=== PATIENT | male | born 1970 | race Caucasian/White ===

== ENCOUNTER 2017-09-12 15:28 | Emergency (ER) | payer OTHER ==
[~2017-09-12] VITALS: Ht 172.7 cm; Wt 81.5 kg
[~2017-09-12 15:28] MED LIST: Z.0.NO CURRENT MEDS
[2017-09-12 15:30] VITALS: BP 134/74; PULSE 92; RESP 12; TEMP 98.2; O2SAT 99
--- NOTE | 2017-09-12 16:13 | PD ---
HPI Chief Complaint: Injury Time Seen by Provider: 15:55 Travel History International Travel<30 days: No Contact w/Intl Traveler<30days: No Traveled to known affect area: No History of Present Illness HPI 46-year-old male presents to the emergency department for evaluation of left elbow/forearm injury that occurred just prior to arrival. He was lifting a heavy box out of a shopping cart when the box slipped causing his arm to twist. He states he heard some pops in his forearm. Since then he has been unable to extend his left elbow and keeps his arm in a flexed fashion. He denies any other injury or complaint at this time. Current pain is 10/10 left elbow and forearm without radiation. Patient sharp and aching. Movement exacerbates pain will keep in the elbow in a flexed position helps alleviate the pain. Moderate severity. PFSH Past Medical History Heart Rhythm Problems: Yes ("FLUTTER") Cardiac Catheterization: Yes (2006) Cardiovascular Problems: Yes High Cholesterol: No Congestive Heart Failure: No Diabetes: No Past Surgical History Coronary Artery Bypass Graft: No Social History Alcohol Use: No Tobacco Use: No Substance Use: No Allergies-Medications (Allergen,Severity, Reaction): Coded Allergies: No Known Allergies (Verified , 12/12/10) Reported Meds & Prescriptions Reported Meds & Active Scripts Active Reported No Current Meds (Miscellaneous Medication) Misc Review of Systems Except as stated in HPI: all other systems reviewed are Neg Physical Exam Narrative GENERAL: Well-nourished, well-developed male patient, afebrile. SKIN: Focused skin assessment warm/dry. HEAD: Normocephalic. Atraumatic. EYES: No scleral icterus. No injection or drainage. NECK: Supple, trachea midline. No JVD or lymphadenopathy. CARDIOVASCULAR: Regular rate and rhythm without murmurs, gallops, or rubs. Left radial pulses 2+. RESPIRATORY: Breath sounds equal bilaterally. No accessory muscle use. Lungs sounds are clear to auscultation. GASTROINTESTINAL: Abdomen soft, non-tender, nondistended. MUSCULOSKELETAL: No cyanosis, or edema. Patient has tenderness over left volar forearm and antecubital area. He keeps his left elbow in a flexed position and is unable to extend it due to pain. BACK: Nontender without obvious deformity. No CVA tenderness. Data Data Last Documented VS Vital Signs Date Time Temp Pulse Resp B/P (MAP) Pulse Ox O2 Delivery O2 Flow Rate FiO2 09/12/17 15:30 98.2 92 12 134/74 (94) 99 Orders Orders Acetamin-Hydrocod 325-5 Mg ([place] 5-325 (09/12/17 16:15) Splint Or Brace Apply/Monitor (09/12/17 16:06) Elbow, Limited (Ap&Lat) (09/12/17 ) Forearm (2vws) (09/12/17 ) Mri Joint Elbow W/O Contrast (09/12/17 ) Mri Forearm W/O Contrast (09/12/17 ) Acetamin-Hydrocod 325-5 Mg ([place] 5-325 (09/12/17 17:45) MDM Medical Decision Making Medical Screen Exam Complete: Yes Emergency Medical Condition: Yes Medical Record Reviewed: Yes Interpretation(s) Last Impressions Radius/Ulna X-Ray 09/12/17 0000 Signed Impressions: Service Date/Time: Tuesday, September 12, 2017 16:42 - CONCLUSION: Normal radiographic appearance of the left forearm. Jean-Pierre Hernandez MD Elbow X-Ray 09/12/17 0000 Signed Impressions: Service Date/Time: Tuesday, September 12, 2017 16:49 - CONCLUSION: Soft tissue swelling anteriorly. Normal bones. Jean-Pierre Hernandez MD Differential Diagnosis Fracture versus dislocation versus tendon rupture Narrative Course 46-year-old male presents to the emergency department for evaluation of left elbow and forearm pain after he lifted a heavy box. Physical exam is limited due to inability to extend the left elbow. X-ray of the left elbow and left forearm are ordered and pending. Patient is given [place] 5/325 mg for pain. Patient is given sling for comfort. X-ray of the left elbow shows no acute bony injury. X-ray of the left forearm shows no acute abnormality. Concern is for tendon rupture. Discussed the case by attending physician, Dr. Nguyen, who recommends MRI. MRI of the elbow and forearm are ordered and pending without contrast. KANDICE Brian, will resume care of patient. Agatha Jeong Sep 12, 2017 16:13
[2017-09-12] MEDS ORDERED: ACETAMINOPHEN/HYDROcodone 325 MG/5 MG TAB PO ONE ×2 (16:15→17:45)
--- NOTE | 2017-09-12 17:04 | RADRPT ---
EXAM DATE/TIME: 09/12/2017 16:49 [facility] COMPARISON: No previous studies available for comparison. INDICATIONS : Patient was pulling furniture out of cart and heard "pop" in arm and complains of pain near elbow on anterior surface. MEDICAL HISTORY : None. SURGICAL HISTORY : None. ENCOUNTER: Initial ACUITY: 1 day PAIN SCORE: 8/10 LOCATION: Left Elbow FINDINGS: No fracture, subluxation or effusion of the left elbow. There is some soft tissue swelling evident an teriorly, nonspecific. No radiopaque foreign body. CONCLUSION: Soft tissue swelling anteriorly. Normal bones. Jean-Pierre Hernandez MD on September 12, 2017 at 17:01 Board Certified Radiologist. This report was verified electronically.
--- NOTE | 2017-09-12 17:05 | RADRPT ---
EXAM DATE/TIME: 09/12/2017 16:42 [facility] COMPARISON: No previous studies available for comparison. INDICATIONS : Patient was pulling furniture out of cart and heard "pop" in arm and complains of pain near elbow on anterior surface. MEDICAL HISTORY : None. SURGICAL HISTORY : None. ENCOUNTER: Initial ACUITY: 1 day PAIN SCORE: 8/10 LOCATION: Left Forearm FINDINGS: Two view examination of the left forearm demonstrates no evidence of fracture or dislocation. Bony m ineralization is normal. The soft tissue structures are intact. CONCLUSION: Normal radiographic appearance of the left forearm. Jean-Pierre Hernandez MD on September 12, 2017 at 17:02 Board Certified Radiologist. This report was verified electronically.
--- NOTE | 2017-09-12 19:14 | RADRPT ---
EXAM DATE/TIME: 09/12/2017 18:35 [facility] COMPARISON: No previous studies available for comparison. INDICATIONS : Internal derangement. MEDICAL HISTORY : None. SURGICAL HISTORY : None. ENCOUNTER: Initial ACUITY: 1 day PAIN SCORE: 7/10 LOCATION: Left elbow. TECHNIQUE: Multiplanar, multisequence MRI examination was performed without contrast. FINDINGS: Distal biceps is torn off of the radial tuberosity and with approximately 12 mm of separation. There is mild edema and/or hemorrhage around the distal tendon and lacertus fibrosis. Distal muscle bellies are normal. No fracture or subluxation of the left elbow. No joint effusion. Articular surfaces are within normal limits. Common flexor and extensor origins are normal. Collateral ligaments are intact. There is mil d tendinosis of the distal triceps without tear. CONCLUSION: Distal biceps rupture with approximately 12 mm of retraction. Jean-Pierre Hernandez MD on September 12, 2017 at 19:10 Board Certified Radiologist. This report was verified electronically.
--- NOTE | 2017-09-12 19:44 | RADRPT ---
EXAM DATE/TIME: 09/12/2017 18:58 [facility] COMPARISON: MRI ELBOW LEFT W/O CONTRAST, September 12, 2017, 18:35. INDICATIONS : Internal derangement. MEDICAL HISTORY : None. SURGICAL HISTORY : None. ENCOUNTER: Initial ACUITY: 1 day PAIN SCORE: 7/10 LOCATION: Left forearm. TECHNIQUE: Multiplanar multisequence MRI examination of the forearm was performed without contrast. FINDINGS: BONE/CARTILAGE: Bone marrow signal is homogeneous. Articular cartilage signal is within normal limits. MUSCLES/TENDONS: All of the visualized muscles and tendons are intact. MISCELLANEOUS: Neurovascular structures are within normal limits. CONCLUSION: Normal MRI of the forearm. Jean-Pierre Hernandez MD on September 12, 2017 at 19:42 Board Certified Radiologist. This report was verified electronically.
[2017-09-12] MEDS ORDERED: PERC5TAB12 PO (19:58)
--- NOTE | 2017-09-12 20:10 | PD ---
Physical Exam Date Seen by Provider: Sep 12, 2017 Time Seen by Provider: 20:04 Data Data Last Documented VS Vital Signs Date Time Temp Pulse Resp B/P (MAP) Pulse Ox O2 Delivery O2 Flow Rate FiO2 09/12/17 15:30 98.2 92 12 134/74 (94) 99 Orders Orders Acetamin-Hydrocod 325-5 Mg ([place] 5-325 (09/12/17 16:15) Splint Or Brace Apply/Monitor (09/12/17 16:06) Elbow, Limited (Ap&Lat) (09/12/17 ) Forearm (2vws) (09/12/17 ) Mri Joint Elbow W/O Contrast (09/12/17 ) Mri Forearm W/O Contrast (09/12/17 ) Acetamin-Hydrocod 325-5 Mg ([place] 5-325 (09/12/17 17:45) Ice/Cold Pack (09/12/17 19:57) Splint Or Brace Apply/Monitor (09/12/17 19:57) MDM Medical Record Reviewed: Yes Supervised Visit with LUIS A: Yes Interpretation(s) Last 24 hours Impressions Upper Extremity MRI 09/12/17 0000 Signed Impressions: Service Date/Time: Tuesday, September 12, 2017 18:58 - CONCLUSION: Normal MRI of the forearm. Jean-Pierre Hernandez MD Radius/Ulna X-Ray 09/12/17 0000 Signed Impressions: Service Date/Time: Tuesday, September 12, 2017 16:42 - CONCLUSION: Normal radiographic appearance of the left forearm. Jean-Pierre Hernandez MD Elbow X-Ray 09/12/17 0000 Signed Impressions: Service Date/Time: Tuesday, September 12, 2017 16:49 - CONCLUSION: Soft tissue swelling anteriorly. Normal bones. Jean-Pierre Hernandez MD Elbow MRI 09/12/17 0000 Signed Impressions: Service Date/Time: Tuesday, September 12, 2017 18:35 - CONCLUSION: Distal biceps rupture with approximately 12 mm of retraction. Jean-Pierre Hernandez MD Differential Diagnosis Differential diagnoses: Sprain, strain, fracture, biceps tear Narrative Course MRI confirms a biceps tear. Patient's given hydrocodone, sling, Anderson compression dressing. The patient has been counseled on following up with an orthopedist. Consider whether this needs to have repair. Diagnosis Primary Impression: Tear of left biceps muscle Qualified Codes: S46.112A - Strain of muscle, fascia and tendon of long head of biceps, left arm, initial encounter Patient Instructions: General Instructions, Narcotic given in the ED Departure Forms: Tests/Procedures, Work Release Special Instructions: No work 3 days. Additional Instruction: Rest. Compression dressing. Ice packs. 3 Advil every 6 hours as needed for pain. Percocet for more severe pain. Follow-up with orthopedic surgeon this week. Return to the ER if any problems. Med/Other Pt SpecificInfo: Prescription(s) given Scripts Oxycodone-Acetaminophen (Percocet) 5-325 mg Tab 1 TAB PO Q6H Y for PAIN, #20 TAB 0 Refills Prov: Gary Nguyen MD 09/12/17 Disposition: 01 DISCHARGE HOME Condition: Stable Christopher Greer Sep 12, 2017 20:10
== END 2017-09-12 20:40 | disposition home or self-care (01) ==
LOC: NEPD 15:28
DX: S46.112A Strain of muscle, fascia and tendon of long head of biceps, left arm, initial encounter (principal); X50.1XXA Overexertion from prolonged static or awkward postures, initial encounter; Y93.89 Activity, other specified
CPT/HCPCS: 73070; 73090; 73218; 73221